=== PATIENT | female | born 1995 ===

== ENCOUNTER 2023-06-30 05:26 | Inpatient (IN) | payer MEDICAID ==
[~2023-06-30 05:26] MED LIST: Citric Acid/Sodium Citrate Solution 30 ML Cup PO ONE; Metoclopramide 10 MG/2 ML SDV IVPUSH ONE
[2023-06-30] MEDS ORDERED: Lactated Ringers 1,000 ML IV SCH (06:00)
[2023-06-30 06:17] LABS: BASOPHILS PERCENT AUTO 0.2 % (0.0-1.0); EOSINOPHILS ABSOLUTE AUTO 0.2 K/mm3 (0.0-0.4); EOSINOPHILS PERCENT AUTO 1.9 % (0.0-6.0); HEMATOCRIT 27.8 % (37.0-47.0); HEMOGLOBIN 8.9 gm/dl (12.0-16.0); IMMATURE GRAN ABSOLUTE AUTO 0.04 K/mm3 (0.00-0.05); IMMATURE GRAN PERCENT AUTO 0.5 % (0.0-0.4); LYMPHOCYTES ABSOLUTE AUTO 2.4 K/mm3 (1.0-4.8); LYMPHOCYTES PERCENT AUTO 29.9 % (24.0-44.0); MEAN CORPUSCULAR HEMOGLOBIN 25.9 pg (28.0-32.0); MEAN PLATELET VOLUME 10.3 fl (9.4-12.3); MONOCYTES ABSOLUTE AUTO 0.8 K/mm3 (0.0-0.8); MONOCYTES PERCENT AUTO 10.4 % (0.0-8.0); NEUTROPHILS ABSOLUTE AUTO 4.6 K/mm3 (1.8-7.7); NEUTROPHILS PERCENT AUTO 57.1 % (41.0-71.0); PLATELET COUNT,PLT 188 K/mm3 (150-400); RED BLOOD CELL COUNT 3.43 M/mm3 (4.10-5.30); WHITE BLOOD CELL COUNT,WBC 8.05 K/mm3 (3.9-11.3)
[2023-06-30] MEDS ORDERED: Morphine PF 10 MG/10 ML SDV ONE (06:53)
[2023-06-30] MEDS ORDERED: Oxytocin 10 Units/1 ML SDV ONE (06:53)
[2023-06-30] MEDS ORDERED: Lactated Ringers 1,000 ML ONE (06:53)
[2023-06-30] MEDS ORDERED: Ondansetron 4 MG/2 ML SDV ONE (06:53)
[2023-06-30] MEDS ORDERED: ceFAZolin 2 GM Vial ONE (06:55)
[2023-06-30] MEDS ORDERED: Citric Acid/Sodium Citrate Solution 30 ML Cup PO ONE (07:07)
[2023-06-30] MEDS ORDERED: Metoclopramide 10 MG/2 ML SDV IVPUSH ONE (07:07)
[2023-06-30] MEDS ORDERED: ceFAZolin 1 GM in Sodium Chloride 0.9% 50 ML IV ONE (07:25)
[2023-06-30] MEDS ORDERED: Oxytocin/Lactated Ringers 10 UNIT/1,000 ML BAG IV SCH ×2 (08:00→09:59)
[2023-06-30] MEDS ORDERED: ePHEDrine 50 MG/ML SDV ONE (08:00)
[2023-06-30] MEDS ORDERED: Ketorolac 30 MG/ML SDV ONE (08:32)
[2023-06-30] MEDS ORDERED: Sodium Chloride 0.9% 10 ML Syringe FLUSH SCH (09:00)
[2023-06-30] MEDS ORDERED: fentaNYL 100 MCG/2 ML SDV IVPUSH PRN (09:15)
[2023-06-30] MEDS ORDERED: diphenhydrAMINE 50 MG/ML SDV IVPUSH PRN ×2 (09:15→09:59)
[2023-06-30] MEDS ORDERED: Ondansetron 4 MG/2 ML SDV IVPUSH PRN (09:15)
[2023-06-30] MEDS ORDERED: Acetaminophen/oxyCODONE 325-5 MG Tab PO PRN (09:59)
[2023-06-30] MEDS ORDERED: Naloxone 0.4 MG/ML SDV IVPUSH PRN (09:59)
[2023-06-30] MEDS ORDERED: ePHEDrine 50 MG/ML SDV IVPUSH PRN (09:59)
[2023-06-30] MEDS ORDERED: Dextrose 5%-Lactated Ringers 1,000 ML IV SCH (09:59)
[2023-06-30] MEDS: Acetaminophen/oxyCODONE 325-5 MG Tab PO PRN ×2 (12:37→19:56)
[2023-06-30] MEDS: Ketorolac 30 MG/ML SDV IVPUSH SCH ×2 (14:56→21:05)
[2023-06-30 15:08] LABS: BASOPHILS PERCENT AUTO 0.3 % (0.0-1.0); EOSINOPHILS PERCENT AUTO 0.4 % (0.0-6.0); HEMATOCRIT 24.3 % (37.0-47.0); HEMOGLOBIN 8.1 gm/dl (12.0-16.0); IMMATURE GRAN ABSOLUTE AUTO 0.05 K/mm3 (0.00-0.05); IMMATURE GRAN PERCENT AUTO 0.5 % (0.0-0.4); LYMPHOCYTES ABSOLUTE AUTO 1.8 K/mm3 (1.0-4.8); LYMPHOCYTES PERCENT AUTO 16.7 % (24.0-44.0); MEAN CORPUSCULAR HEMOGLOBIN 25.9 pg (28.0-32.0); MEAN CORPUSCULAR HGB CONC 33.3 g/dl (32.0-36.0); MEAN CORPUSCULAR VOLUME 77.6 fl (83.0-99.0); MEAN PLATELET VOLUME 10.6 fl (9.4-12.3); MONOCYTES ABSOLUTE AUTO 0.9 K/mm3 (0.0-0.8); MONOCYTES PERCENT AUTO 8.8 % (0.0-8.0); NEUTROPHILS ABSOLUTE AUTO 7.7 K/mm3 (1.8-7.7); NEUTROPHILS PERCENT AUTO 73.3 % (41.0-71.0); PLATELET COUNT,PLT 172 K/mm3 (150-400); RED BLOOD CELL COUNT 3.13 M/mm3 (4.10-5.30); WHITE BLOOD CELL COUNT,WBC 10.53 K/mm3 (3.9-11.3)
[2023-06-30] MEDS: Ferrous Sulfate 324 MG Tab.EC PO SCH (17:07)
[2023-06-30] MEDS ORDERED: Magnesium Hydroxide 400 MG/5 ML Susp 30 ML Cup PO PRN (21:00)
[2023-06-30] MEDS: Docusate Sodium 100 MG Cap PO SCH (22:56)
[2023-07-01] MEDS: Acetaminophen/oxyCODONE 325-5 MG Tab PO PRN ×3 (02:17→17:57)
[2023-07-01] MEDS: Ketorolac 30 MG/ML SDV IVPUSH SCH (03:09)
[2023-07-01 06:45] LABS: BASOPHILS PERCENT AUTO 0.2 % (0.0-1.0); EOSINOPHILS ABSOLUTE AUTO 0.1 K/mm3 (0.0-0.4); EOSINOPHILS PERCENT AUTO 0.9 % (0.0-6.0); HEMATOCRIT 23.3 % (37.0-47.0); HEMOGLOBIN 7.6 gm/dl (12.0-16.0); IMMATURE GRAN ABSOLUTE AUTO 0.04 K/mm3 (0.00-0.05); IMMATURE GRAN PERCENT AUTO 0.4 % (0.0-0.4); LYMPHOCYTES ABSOLUTE AUTO 1.9 K/mm3 (1.0-4.8); MEAN CORPUSCULAR HEMOGLOBIN 25.4 pg (28.0-32.0); MEAN CORPUSCULAR HGB CONC 32.6 g/dl (32.0-36.0); MEAN CORPUSCULAR VOLUME 77.9 fl (83.0-99.0); MEAN PLATELET VOLUME 10.8 fl (9.4-12.3); MONOCYTES ABSOLUTE AUTO 0.9 K/mm3 (0.0-0.8); MONOCYTES PERCENT AUTO 9.8 % (0.0-8.0); NEUTROPHILS ABSOLUTE AUTO 6.4 K/mm3 (1.8-7.7); NEUTROPHILS PERCENT AUTO 68.7 % (41.0-71.0); PLATELET COUNT,PLT 171 K/mm3 (150-400); RED BLOOD CELL COUNT 2.99 M/mm3 (4.10-5.30); WHITE BLOOD CELL COUNT,WBC 9.36 K/mm3 (3.9-11.3)
[2023-07-01] MEDS: Ferrous Sulfate 324 MG Tab.EC PO SCH ×2 (08:15→17:57)
[2023-07-01] MEDS: Prenatal Multivitamin with Calcium/Folic Acid/Iron Tab PO SCH (08:15)
[2023-07-01] MEDS: Docusate Sodium 100 MG Cap PO SCH (08:15)
[2023-07-01] MEDS: Ibuprofen 600 MG Tab PO PRN (14:13)
[2023-07-02] MEDS: Acetaminophen/oxyCODONE 325-5 MG Tab PO PRN (00:07)
[2023-07-02] MEDS: Docusate Sodium 100 MG Cap PO SCH (09:44)
[2023-07-02] MEDS: Prenatal Multivitamin with Calcium/Folic Acid/Iron Tab PO SCH (09:44)
[2023-07-02] MEDS: Ibuprofen 600 MG Tab PO PRN (09:44)
[2023-07-02] MEDS: Ferrous Sulfate 324 MG Tab.EC PO SCH (10:34)
== END 2023-07-02 10:22 | disposition home or self-care (01) | DRG 787 ==
LOC: JD.OB 05:26
PROVIDERS: ADMIT Obstetrics & Gynecology; ATTEND Obstetrics & Gynecology
PROC: 10D00Z1 Extraction of Products of Conception, Low, Open Approach (ICD-10-PCS; principal; 2023-06-30)
DX: O34.211 Maternal care for low transverse scar from previous cesarean delivery (principal); D62 Acute posthemorrhagic anemia; O99.02 Anemia complicating childbirth; K59.00 Constipation, unspecified; O99.62 Diseases of the digestive system complicating childbirth; Z37.0 Single live birth; Z3A.39 39 weeks gestation of pregnancy
CPT/HCPCS: 36415; 59025; 85025; 86592; 86850; 86900; 86901; 94762; A9270-GY; J0690; J1885; J2274; J2405; J2590; J2765; J3490; J7120; J7121